=== PATIENT | female | born 1990 ===

== ENCOUNTER 2017-10-02 11:20 | Outpatient (CLI) | payer OTHER ==
[~2017-10-02 11:20] MED LIST: CEPHALEXIN500 MG PO; EC-NAPROSYN500 MG PO
== END 2017-10-02 11:30 | disposition home or self-care (01) ==
LOC: LAB 11:20
DX: R50.9 Fever, unspecified (principal); J11.1 Influenza due to unidentified influenza virus with other respiratory manifestations

== ENCOUNTER 2024-03-25 11:39 | Outpatient (CLI) | payer OTHER | END 2024-03-25 13:03 | disposition home or self-care (01) | LOC: NST 11:39 | PROVIDERS: ATTEND Obstetrics & Gynecology | DX: Z34.83 Encounter for supervision of other normal pregnancy, third trimester (principal) ==

== ENCOUNTER → 2024-04-08 | Outpatient (CLI) | payer OTHER | END | disposition home or self-care (01) | LOC: NST 11:36 | PROVIDERS: ATTEND Obstetrics & Gynecology Gynecology | DX: Z34.83 Encounter for supervision of other normal pregnancy, third trimester (principal) ==

== ENCOUNTER 2024-04-12 13:00 | Inpatient (IN) | payer OTHER ==
[~2024-04-12] VITALS: Ht 165.1 cm; Wt 104.8 kg
[2024-04-17 04:43] VITALS: BP 139/77
[2024-04-17] MEDS ORDERED: PRENATAL TABLE1 EAC5 PO (05:56)
[2024-04-17] MEDS ORDERED: ADULT LOW DOSE81 M1 PO (05:56)
[2024-04-17 06:07] LABS: HEMATOCRIT 34.3 % (36.0-45.00); HEMOGLOBIN 11.8 g/dL (12.0-15.00); MEAN CELL VOLUME 84.1 fL (80.00-100.00); MEAN CORPUSCULAR HEMOGLOBIN 28.8 pg (27.00-32.0); MEAN CORPUSCULAR HGB CONC 34.3 g/dl (32.0-36.0); PLATELET COUNT 276 K/uL (150-450); RED BLOOD COUNT 4.08 M/uL (4.00-6.00); RED CELL DISTRIBUTION WIDTH 15.2 % (11.5-14.5)
[2024-04-17] MEDS ORDERED: RINGERS SOLUTION,LACTATED 1,000 ML IV SCH (06:15)
[2024-04-17] MEDS ORDERED: OXYTOCIN 500 ML IV ONE (06:15)
[2024-04-17] MEDS ORDERED: AMPICILLIN SODIUM 2,000 MG VIAL IV ONE (06:15)
[2024-04-17 06:38] LABS: INR < 0.93; PROTHROMBIN TIME 9.8 SECONDS (9.0-11.5)
[2024-04-17 07:12] LABS: ALBUMIN 2.6 gm/dL (3.4-5.0); BILIRUBIN TOTAL 0.16 mg/dL (0.3-1.2); CALCIUM 9.4 mg/dL (8.5-10.1); CREATININE SERUM 0.52 mg/dL (0.55-1.02); GFR 133.43; GLOBULINA 3.7 G/DL (2.4-3.5); POTASSIUM 4.03 mEq/L (3.5-5.1); TOTAL PROTEIN 6.3 gm/dL (6.4-8.2)
[2024-04-17 07:30] VITALS: BP 118/72
[2024-04-17] MEDS ORDERED: AMPICILLIN SODIUM 1,000 MG VIAL IV SCH (09:00)
[2024-04-17 11:29] VITALS: BP 119/84
[2024-04-17 15:32] VITALS: BP 144/74
[2024-04-17] MEDS ORDERED: ERYTHROMYCIN BASE OPHT 1GM EACH TUBE OP ONE (20:00)
[2024-04-17] MEDS ORDERED: LIDOCAINE HCL 1% 10ML VIAL IJ ONE (20:00)
[2024-04-17 20:35] VITALS: BP 144/90
[2024-04-17] MEDS ORDERED: DOCUSATE SODIUM 100MG CAP PO SCH (20:47)
[2024-04-17] MEDS ORDERED: CHLORHEXIDINE GLUCONATE 120 ML BOTTLE TOP SCH (21:00)
[2024-04-17] MEDS ORDERED: OXYTOCIN 1,000 ML IV ONE (21:00)
[2024-04-17] MEDS ORDERED: IBUprofen 400 MG TABLET PO PRN (21:00)
[2024-04-17 23:21] VITALS: BP 133/83
[2024-04-18 01:19] VITALS: BP 130/81
[2024-04-18 06:39] LABS: HEMOGLOBIN 9.6 g/dL (12.0-15.00); MEAN CELL VOLUME 83.2 fL (80.00-100.00); MEAN CORPUSCULAR HEMOGLOBIN 28.7 pg (27.00-32.0); MEAN CORPUSCULAR HGB CONC 34.4 g/dl (32.0-36.0); PLATELET COUNT 261 K/uL (150-450); RED BLOOD COUNT 3.36 M/uL (4.00-6.00); RED CELL DISTRIBUTION WIDTH 15.4 % (11.5-14.5)
[2024-04-18 08:00] VITALS: BP 124/75; BP 150/80
[2024-04-18] MEDS ORDERED: PNV,CALCIUM 72/IRON/FOLIC ACID 1 TAB TABLET PO SCH (09:00)
[2024-04-18] MEDS ORDERED: IRON FUM,PS/FOLIC/BCOMP,C NO.9 1 CAP CAPSULE PO SCH (09:00)
[2024-04-18 16:00] VITALS: BP 131/81
[2024-04-19 01:45] VITALS: BP 135/88
[2024-04-19 08:00] VITALS: BP 139/81
== END 2024-04-19 12:29 | disposition home or self-care (01) | DRG 807 ==
LOC: LDR 04-17 03:38 → OB/GYN 04-18 01:16
PROVIDERS: ADMIT Obstetrics & Gynecology Gynecology; ATTEND Obstetrics & Gynecology Gynecology
PROC: 10E0XZZ Delivery of Products of Conception, External Approach (ICD-10-PCS; principal; 2024-04-17)
PROC: 0KQM0ZZ Repair Perineum Muscle, Open Approach (ICD-10-PCS; 2024-04-17)
PROC: 4A1HXCZ Monitoring of Products of Conception, Cardiac Rate, External Approach (ICD-10-PCS; 2024-04-17)
DX: O70.1 Second degree perineal laceration during delivery (principal); Z37.0 Single live birth; Z3A.39 39 weeks gestation of pregnancy; Z20.822 Contact with and (suspected) exposure to COVID-19

== ENCOUNTER 2024-04-16 10:11 | Outpatient (CLI) | payer OTHER ==
[2024-04-17] MEDS ORDERED: PRENATAL TABLE1 EAC5 PO (05:56)
[2024-04-17] MEDS ORDERED: ADULT LOW DOSE81 M1 PO (05:56)
== END 2024-04-16 10:35 | disposition home or self-care (01) ==
LOC: NST 10:11
PROVIDERS: ATTEND Obstetrics & Gynecology
DX: Z34.83 Encounter for supervision of other normal pregnancy, third trimester (principal)